=== PATIENT | male | born 1950 | race African-American/Black ===

== ENCOUNTER 2018-06-28 04:45 | Emergency (ER) | payer MEDICARE, OTHER ==
[~2018-06-28] VITALS: Ht 180.3 cm; Wt 117.9 kg
[~2018-06-28 04:45] MED LIST: HYDR12.5 PO; LISI2.5T2 PO
--- NOTE | 2018-06-28 05:02 | NUR ---
PT came to ER complaining of R elbow pain after exercising 2 days ago, 10/ non-radiating. No trauma. Pt came to ER because pt was unable to sleep. Pt [id number]. Respirations even and unlabored. Pt put on the monitor. Pending eval from ER .
--- NOTE | 2018-06-28 05:05 | NUR ---
[facility] at bedside for eval.
[2018-06-28] MEDS ORDERED: HYDROCODONE/APAP 5/325MG 1 EACH TABLET ONE (05:10)
--- NOTE | 2018-06-28 05:13 | NUR ---
XRAY at bedside.
[2018-06-28] MEDS ORDERED: HYDROCODONE/APAP 5/325MG 1 EACH TABLET PO ONE (05:30)
[2018-06-28 05:54] VITALS: BP 128/86
--- NOTE | 2018-06-28 05:54 | NUR ---
Patient discharged to home in stable condition. Written and verbal after care instructions given. Patient verbalizes understanding of instruction. Pt ambulatory with steady gait.
== END 2018-06-28 05:55 | disposition home or self-care (01) ==
LOC: ER 04:47
DX: S52.121A Displaced fracture of head of right radius, initial encounter for closed fracture (principal); I10 Essential (primary) hypertension; Z85.46 Personal history of malignant neoplasm of prostate; X58.XXXA Exposure to other specified factors, initial encounter; Y93.B9 Activity, other involving muscle strengthening exercises; Y92.89 Other specified places as the place of occurrence of the external cause; Y99.8 Other external cause status
CPT/HCPCS: 73080-TC